=== PATIENT | male | born 1985 | race Caucasian/White ===

== ENCOUNTER 2019-12-21 15:31 | Observation (INO) | payer OTHER ==
[2019-12-21 16:11] LABS: Absolute Lymphocytes (CBC) 0.5 K/uL (0.7-4.9); Basophils % 0.2 % (0-1.3); Lymphocytes % 4.7 % (15.3-44.8); MPV 11.1 fL (7.6-11.3); RBC Red Blood Cell Count 4.59 M/uL (4.33-5.43)
[2019-12-21 16:19] LABS: Potassium 3.7 mmol/L (3.5-5.1)
--- NOTE | 2019-12-21 16:54 | ER ---
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 Coronavirus screen: Client denies travel out of the [place] in the last 14 days. Ebola Screen: No symptoms or risks identified at this time. Initial Sepsis Screen: Does the patient meet any 2 criteria? No. Patient's initial sepsis screen is negative. Does the patient have a suspected source of infection? No. Patient's initial sepsis screen is negative. Risk Assessment: Do you want to hurt yourself or someone else? Patient reports no desire to harm self or others. Onset of symptoms was December 21, 2019. 15:35 Method Of Arrival: EMS: [facility] ph 15:35 Acuity: SARIAH 3 ph Historical: - Allergies: 18:29 NKA; em - PMHx: 18:29 None; em - PSHx: 18:29 Tonsillectomy; right arm; cleft palate; em - Immunization history:: Adult Immunizations unknown. - Social history:: Smoking status: unknown. Screenin:36 Abuse screen: Denies threats or abuse. Nutritional screening: No deficits noted. em Tuberculosis screening: No symptoms or risk factors identified. Fall Risk None identified. Assessment: 15:35 General: Appears in no apparent distress. uncomfortable, Behavior is calm, quiet. Pain: em Denies pain. Neuro: Level of Consciousness is awake, alert, obeys commands, Oriented to person, place, time, situation, Appropriate for age. Cardiovascular: Capillary refill < 3 seconds Patient's skin is warm and dry. Rhythm is sinus tachycardia. Respiratory: Airway is patent Respiratory effort is even, unlabored, Respiratory pattern is regular, symmetrical. GI: Patient currently denies nausea, vomiting. Derm: Skin is intact, is healthy with good turgor, Skin is pink, warm \T\ dry. Musculoskeletal: Capillary refill < 3 seconds, Range of motion: intact in all extremities. 16:35 Reassessment: Patient appears in no apparent distress at this time. Patient and/or em family updated on plan of care and expected duration. Pain level reassessed. Patient is alert, oriented x 3, equal unlabored respirations, skin warm/dry/pink. 17:17 Reassessment: Dr. Deleon at bedside. em 18:25 Reassessment: PERLA Jackson at bedside. em 19:15 General: Appears comfortable, Behavior is calm, cooperative. Pain: Denies pain. Neuro: rv Level of Consciousness is awake, alert, obeys commands, Oriented to person, place, time, situation. Cardiovascular: Patient's skin is warm and dry. Rhythm is regular. Respiratory: Airway is patent Respiratory effort is even, unlabored, Respiratory pattern is regular, symmetrical. Vital Signs: 15:35 BP 99 / 65; Pulse 109; Resp 18; Temp 99.1(O); Pulse Ox 100% on R/A; Weight 106.59 kg; ph Height 6 ft. 1 in. (185.42 cm); 15:44 BP 110 / 61 LA Supine; Pulse 99; Resp 16; Pulse Ox 99% on R/A; dh3 15:46 BP 113 / 65 LA Sitting; Pulse 104; Resp 17; Pulse Ox 99% on R/A; dh3 15:48 BP 102 / 69 LA Standing; Pulse 107; Resp 19; Pulse Ox 100% on R/A; dh3 16:39 BP 101 / 59; Pulse 97; Resp 18; Pulse Ox 94% on R/A; em 17:30 BP 112 / 69; Pulse 80; Resp 16; Pulse Ox 100% on R/A; em 19:14 BP 111 / 75; Pulse 76; Resp 15; Pulse Ox 100% on R/A; rv 15:35 Body Mass Index 31.00 (106.59 kg, 185.42 cm) ph ED Course: 15:34 Patient arrived in ED. ph 15:35 Crystal Bailey [facility]C [facility]. kb 15:35 Mio Perez MD is Attending Physician. kb 15:36 Boni Byrd, TOSHIA is Primary Nurse. em 15:36 Patient has correct armband on for positive identification. Pulse ox on. NIBP on. em 15:36 Maintain EMS IV. Dressing intact. Good blood return noted. Site clean \T\ dry. Gauge \T\ em site: 18 G RAC. 15:39 Triage completed. ph 15:41 Arm band placed on Patient placed in an exam room, on a stretcher, on pulse oximetry. ph 15:50 Initial lab(s) drawn, by me, sent to lab. [facility] 16:54 Berto Deleon MD is Hospitalizing Provider. kb 18:08 CT Stone Protocol In Process Unspecified. EDMS 18:28 Urine collected: clean catch specimen, clear. em 20:20 No provider procedures requiring assistance completed. IV is patent, with fluids rv infusing freely, Patient admitted, IV remains in place. Administered Medications: 17:11 Drug: NS 0.9% 1000 ml Route: IV; Rate: 1000 ml; Site: right antecubital; em 18:05 Follow up: IV Status: Completed infusion; IV Intake: 1000ml em 18:25 Drug: NS 0.9% 1000 ml Route: IV; Rate: 125 ml/hr; Site: right antecubital; em 20:20 Follow up: IV Status: Infusion continued upon admission rv Intake: 18:05 IV: 1000ml; Total: 1000ml. em Outcome: 16:54 Decision to Hospitalize by Provider. kb 20:20 Admitted to Med/surg accompanied by tech, via wheelchair, room 213, Other SBAR EKG rv Report called to DENNIS POPE 20:20 Condition: good 20:20 Instructed on the need for admit. 20:33 Patient left the ED. rv Signatures: Dispatcher [employer] EDUT Crystal Bailey, REVIEW ANALYST-Brenda MELISSAP-Boni Dean, RN RN Nathaly Lane RN RN Yazmin Toro [facility] Guillermo Hill RN RN rv
--- NOTE | 2019-12-21 16:55 | EDPHYS ---
Physician Documentation [facility] Name: David Goldman Age: 34 yrs Sex: Male : 1985 Arrival Date: 12/21/2019 Time: 15:34 Bed 7 Private MD: ED Physician Mio Perez HPI: 12/20 15:41 This 34 yrs old Male presents to ER via EMS with complaints of Heat Exposure. kb 15:41 The patient presents with lightheadedness. Onset: The symptoms/episode began/occurred kb just prior to arrival. Context: occurred outdoors, at work, occurred while the patient was working. Modifying factors: The symptoms are alleviated by nothing, the symptoms are aggravated by nothing. Associated signs and symptoms: Pertinent positives: lightheaded, muscle cramps. Severity of symptoms: At their worst the symptoms were moderate in the emergency department the symptoms have improved. Patient's baseline: Neuro: alert and fully oriented, Motor: no deficits, Ambulation: walks without assistance, Speech: normal. The patient has not experienced similar symptoms in the past. The patient has not recently seen a physician. Pt reports he has been working outside all day without a break and got too hot. Reports lightheadedness and muscle cramps. . Historical: - Allergies: 18:29 NKA; em - PMHx: 18:29 None; em - PSHx: 18:29 Tonsillectomy; right arm; cleft palate; em - Immunization history:: Adult Immunizations unknown. - Social history:: Smoking status: unknown. ROS: 15:40 Constitutional: Negative for fever, chills, and weight loss, Cardiovascular: Negative kb for chest pain, palpitations, and edema, Respiratory: Negative for shortness of breath, cough, wheezing, and pleuritic chest pain, Abdomen/GI: Negative for abdominal pain, nausea, vomiting, diarrhea, and constipation, MS/Extremity: Negative for injury and deformity. + muscle cramps Skin: Negative for injury, rash, and discoloration. 15:40 Neuro: Positive for lightheaded. Exam: 15:41 Constitutional: This is a well developed, well nourished patient who is awake, alert, kb and in no acute distress. Head/Face: Normocephalic, atraumatic. Chest/axilla: Normal chest wall appearance and motion. Nontender with no deformity. No lesions are appreciated. Cardiovascular: Regular rate and rhythm with a normal S1 and S2. No gallops, murmurs, or rubs. Normal PMI, no JVD. No pulse deficits. Respiratory: Lungs have equal breath sounds bilaterally, clear to auscultation and percussion. No rales, rhonchi or wheezes noted. No increased work of breathing, no retractions or nasal flaring. Abdomen/GI: Soft, non-tender, with normal bowel sounds. No distension or tympany. No guarding or rebound. No evidence of tenderness throughout. Skin: Warm, dry with normal turgor. Normal color with no rashes, no lesions, and no evidence of cellulitis. MS/ Extremity: Pulses equal, no cyanosis. Neurovascular intact. Full, normal range of motion. Neuro: Awake and alert, GCS 15, oriented to person, place, time, and situation. Cranial nerves II-XII grossly intact. Motor strength 5/5 in all extremities. Sensory grossly intact. Cerebellar exam normal. Normal gait. 16:00 ECG was reviewed by the Attending Physician. kb Vital Signs: 15:35 BP 99 / 65; Pulse 109; Resp 18; Temp 99.1(O); Pulse Ox 100% on R/A; Weight 106.59 kg; ph Height 6 ft. 1 in. (185.42 cm); 15:44 BP 110 / 61 LA Supine; Pulse 99; Resp 16; Pulse Ox 99% on R/A; dh3 15:46 BP 113 / 65 LA Sitting; Pulse 104; Resp 17; Pulse Ox 99% on R/A; dh3 15:48 BP 102 / 69 LA Standing; Pulse 107; Resp 19; Pulse Ox 100% on R/A; dh3 16:39 BP 101 / 59; Pulse 97; Resp 18; Pulse Ox 94% on R/A; em 17:30 BP 112 / 69; Pulse 80; Resp 16; Pulse Ox 100% on R/A; em 19:14 BP 111 / 75; Pulse 76; Resp 15; Pulse Ox 100% on R/A; rv 15:35 Body Mass Index 31.00 (106.59 kg, 185.42 cm) ph MDM: 15:35 Patient medically screened. kb 15:40 Data reviewed: vital signs, nurses notes. Data interpreted: Pulse oximetry: on room air kb is 100 %. Interpretation: normal. 16:53 Counseling: I had a detailed discussion with the patient and/or guardian regarding: the kb historical points, exam findings, and any diagnostic results supporting the discharge/admit diagnosis, lab results, the need for further work-up and treatment in the hospital. Physician consultation: Berto Deleon MD was contacted at 16:53, regarding admission, to the telemetry unit. and will see patient in ED, shortly. 12/20 15:38 Order name: CBC with Diff; Complete Time: 19:46 kb 12/20 15:38 Order name: Basic Metabolic Panel; Complete Time: 16:20 kb 12/20 15:38 Order name: CPK; Complete Time: 16:20 kb 12/20 17:46 Order name: CT Stone Protocol; Complete Time: 18:25 mt 12/20 18:27 Order name: Urine Dipstick--Ancillary (enter results); Complete Time: 19:17 mt 12/20 19:43 Order name: CBC Smear Scan; Complete Time: 19:46 EDMS 12/20 15:38 Order name: IV Start; Complete Time: 15:47 kb 12/20 15:38 Order name: EKG; Complete Time: 15:39 kb 12/20 15:38 Order name: EKG - Nurse/Tech; Complete Time: 15:47 kb 12/20 15:38 Order name: Orthostatics; Complete Time: 15:47 kb 12/20 15:38 Order name: Urine Dipstick-Ancillary (obtain specimen); Complete Time: 18:28 kb EC:00 Rate is 98 beats/min. Rhythm is regular. QRS [place] is Normal. LA interval is normal at kb 162 msec. QRS interval is normal at 80 msec. QT interval is normal at 338 msec. Administered Medications: 17:11 Drug: NS 0.9% 1000 ml Route: IV; Rate: 1000 ml; Site: right antecubital; em 18:05 Follow up: IV Status: Completed infusion; IV Intake: 1000ml em 18:25 Drug: NS 0.9% 1000 ml Route: IV; Rate: 125 ml/hr; Site: right antecubital; em 20:20 Follow up: IV Status: Infusion continued upon admission rv Disposition: 12/21 07:27 Co-signature as Attending Physician, Mio Perez MD I agree with the assessment and kdr plan of care. Disposition: 12/21/19 16:54 Hospitalization ordered by Berto Deleon for Observation. Preliminary diagnosis are Dehydration, Exposure to excessive natural heat. - Bed requested for Telemetry/MedSurg (observation). - Status is Observation. rv - Condition is Stable. - Problem is new. - Symptoms are unchanged. Signatures: Dispatcher [employer] EDIN Crystal Bailey, BRAND PLANNER-C BRAND PLANNER-Ckb Mio Perez MD MD [facility] Boni Byrd, RN RN Thu Moore, RN RN tl1 Guillermo Hill, RN RN rv Corrections: (The following items were deleted from the chart) 12/20 19:14 16:54 Hospitalization Ordered by Berto Deleon MD for Observation. Preliminary tl1 diagnosis is Dehydration; Exposure to excessive natural heat. Bed requested for Telemetry/MedSurg (observation). Status is Observation. Condition is Stable. Problem is new. Symptoms are unchanged. kb 20:33 19:14 12/21/2019 16:54 Hospitalization Ordered by Berto Deleon MD for Observation. rv Preliminary diagnosis is Dehydration; Exposure to excessive natural heat. Bed requested for Telemetry/MedSurg (observation). Status is Observation. Condition is Stable. Problem is new. Symptoms are unchanged. tl1
[2019-12-21] MEDS ORDERED: NA CHLORIDE 0.9% 1,000 ML ONE ×2 (17:18→18:16)
--- NOTE | 2019-12-21 18:18 | RAD REPORT ---
EXAM DESCRIPTION: CT - Stone Protocol - 12/21/2019 6:08 pm CLINICAL HISTORY: ABD PAIN COMPARISON: Abdomen Pelvis W Contrast dated 04/13/2016 TECHNIQUE: Axial [address] imaging of the abdomen and pelvis was performed without IV contrast. No IV contrast was given because of allergy, abnormal renal function, patient refusal or physician re quest. No oral contrast. All CT scans are performed using dose optimization technique as appropriate and may include automated exposure control or mA/KV adjustment according to patient size. FINDINGS: No suspicious findings in the lung bases. The liver, spleen and pancreas show no suspicious findings on non-contrast imaging. Gallbladder and b iliary tree are also without suspicious finding. No hydronephrosis or suspicious renal mass. No significant adrenal finding. Isodense renal masses an d pyelonephritis cannot be excluded in the absence of IV contrast. The urinary bladder is without sig nificant finding. No dilated bowel loops or bowel wall thickening. Appendix is normal. No free air, free fluid or infla mmatory stranding. No hernia, mass or bulky lymphadenopathy. No suspicious bony findings. No significant change from comparison. IMPRESSION: Non-contrast enhanced CT abdomen and pelvis imaging show no significant or suspicious fi nding. Full assessment is limited is the absence of IV contrast.
--- NOTE | 2019-12-21 18:48 | P.HP ---
Certification for Inpatient Patient admitted to: Observation With expected LOS: <2 Midnights Patient will require the following post-hospital care: None Practitioner: I am a practitioner with admitting privileges, knowledge of patient current condition, hospital course, and medical plan of care. Services: Services provided to patient in accordance with Admission requirements found in Title 42 Section 412.3 of the Code of Federal Regulations <JordynManuel - Last Filed: 12/21/19 18:43> Patient History Date of Service: 12/21/19 Primary Care Provider: Dr. Bangura Reason for admission: FARRUKH History of Present Illness: 34 year old male with no significant medical history presents emergency department for muscle cramps and malaise. 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 Patient reports that he is attempting to stay well-hydrated drinking multiple bottles of water in the morning and some sports drinks out the day but by the end of the day he was having muscle cramps and feeling ill. Patient was worked up in the emergency room and found to have elevated creatinine at 2.47, BUN 27, GFR 30, CPK 392. After hospitalist attending interview patient he revealed that he had been having trouble initiating urinary stream and sometimes problems with continuation for the past few months but especially over the course of the last 3 weeks. ED provider obtained CT stone protocol which did not show any acute findings or obstructive uropathy. Patient be admitted for further evaluation and management. When I saw the patient in the emergency department is awake, alert, oriented x3. Patient in no distress, denies any pain at this time. Patient able to urinate and provide specimen. - Past Medical/Surgical History Diabetic: No -: none -: Cleft palate -: Extra toe amputation -: Forearm surgery -: Tonsillectomy Psychosocial/ Personal History: 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 - Family History Mother Notes: IBD, hypertension - Social History Alcohol use: No CD- Drugs: No Caffeine use: Yes Place of Residence: Home <Manuel Cobb - Last Filed: 12/21/19 18:43> Date of Service: 12/24/19 <Berto Deleon - Last Filed: 12/24/19 15:33> Allergies No Known Drug Allergies Allergy (Verified 12/21/19 20:33) Unknown No Known Allergies Allergy (Uncoded 04/13/16 16:21) Unknown Review of Systems 10-point ROS is otherwise unremarkable Musculoskeletal: Other (Muscle cramps) <Manuel Cobb - Last Filed: 12/21/19 18:43> Physical Examination - Physical Exam General: Alert, In no apparent distress HEENT: Atraumatic, PERRLA, Mucous membr. moist/pink Neck: Supple, 2+ carotid pulse no bruit, No LAD Respiratory: Clear to auscultation bilaterally, Normal air movement Cardiovascular: Regular rate/rhythm, Normal S1 S2 Gastrointestinal: Normal bowel sounds, No tenderness Musculoskeletal: No tenderness Integumentary: No rashes Neurological: Normal gait, Normal speech, Normal strength at 5/5 x4 extr, Normal tone, Normal affect - Studies Laboratory Data (last 24 hrs) 12/21/19 15:50: Sodium 141, Potassium 3.7, BUN 27 H, Creatinine 2.47 H, Glucose 100 12/21/19 15:50: WBC 11.0 H, Hgb 13.6, Hct 40.0, Plt Count 186 <Manuel Cobb - Last Filed: 12/21/19 18:43> Assessment and Plan - Plan Assessment Acute kidney injury Plan Acute kidney injury: Continue with IV hydration, nephrology consult in place. Renal ultrasound and uric acid levels ordered. Likely prerenal. DVT prophylaxis heparin 5000 units subcutaneous twice daily. Appreciate further input from nephrology. Discharge Plan: Home Plan to discharge in: 24 Hours - Advance Directives Does patient have a Living Will: No Does patient have a Durable POA for Healthcare: No - Code Status/Comfort Care Code Status Assessed: Yes (Patient is full code) Critical Care: No Time Spent Managing Pts Care (In Minutes): 55 <Manuel Cobb - Last Filed: 12/21/19 18:43> Physician Review Additional Text: Plan of care discussed with Manuel Cobb, and I agree with the management plan as noted above. FARRUKH and likely secondary to heat exhaustion <Berto Deleon - Last Filed: 12/24/19 15:33>
[2019-12-21 19:09] LABS: Urine Blood TRACE (NEG); Urine Glucose NEGATIVE (NEG); Urine Protein 2+ (NEG); Urine pH 5.5 (5.0-7.0)
[2019-12-21 19:43] LABS: Blood Morphology Comment NOT SEEN (NOT SEEN); Platelet Estimate ADEQ; White Blood Cell Scan OK (OK)
[2019-12-21 20:35] VITALS: BMI 29.3
[2019-12-21] MEDS ORDERED: ONDANSETRON 4 MG/2 ML VIAL IV PRN (20:39)
[2019-12-21] MEDS ORDERED: ACETAMINOPHEN 500 MG TAB PO PRN (20:39)
[2019-12-21] MEDS: NA CHLORIDE 0.9% 1,000 ML IV SCH (20:59)
[2019-12-21] MEDS: HEPARIN 5000 UNIT/ML 1 ML VIAL SQ SCH (21:00)
[2019-12-21 23:01] LABS: Urine Protein/Creatinine Ratio 0.09 ratio (<0.15)
[2019-12-21 23:29] LABS: Urine Appearance CLEAR; Urine Bilirubin NEGATIVE (NEG); Urine Blood NEGATIVE (NEG); Urine Color YELLOW; Urine Glucose NEGATIVE (NEG); Urine Protein NEGATIVE (NEG); Urine Urobilinogen 0.2 mg/dL (0.2-1.0); Urine pH 5.5 (5.0-7.0)
[2019-12-21 23:30] LABS: Urine Microscopic Reflex NO UMIC
[2019-12-22] MEDS: NA CHLORIDE 0.9% 1,000 ML IV SCH ×2 (03:45→11:51)
[2019-12-22 05:46] LABS: Absolute Lymphocytes (CBC) 1.7 K/uL (0.7-4.9); Basophils % 0.7 % (0-1.3); Hematocrit 37.7 % (39.6-49.0); Lymphocytes % 23.2 % (15.3-44.8); MPV 10.6 fL (7.6-11.3)
[2019-12-22 06:09] LABS: Magnesium 2.5 mg/dL (1.8-2.4); Potassium 3.7 mmol/L (3.5-5.1); Uric Acid 6.5 mg/dL (3.5-7.2)
[2019-12-22] MEDS: HEPARIN 5000 UNIT/ML 1 ML VIAL SQ SCH (08:01)
[2019-12-22] MEDS ORDERED: POTASSIUM CL SA 10 MEQ TAB PO ONE (09:00)
--- NOTE | 2019-12-22 09:23 | RAD REPORT ---
EXAM DESCRIPTION: US - Renal Ultrasound-Complete - 12/22/2019 8:46 am CLINICAL HISTORY: Acute renal insufficiency COMPARISON: None. FINDINGS: The right kidney measures 11 cm with an increased echotexture. The left kidney measures 11 cm with an increased echotexture. Hydronephrosis is not seen. No gross abnormality of bladder is seen IMPRESSION: Mildly increased renal echotexture consistent with parenchymal disease
[2019-12-22 10:23] VITALS: O2SAT 96
--- NOTE | 2019-12-22 12:35 | P.CNS ---
Date of Consult: 12/22/19 Primary Care Provider: Dr. 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, have diffculty in urination, no dysuria or hematuria in RE Cr 2.4, no significant finding on US Physical exam general: AAOX3, NAD Neck; Supple, No elevated JVD hear: RRR, normal S1,2 no murmur or rub Chest: CTAB, no rlaes or wheezes Abdomen: Soft , Nt Extremities No edema or ulcer A/P FARRUKH due to dehydration from heat exhaust improved on IVF US no hydro Avoid NSAID mild Rhabdomyolysis fom heat exhause improved encourage to increase fluid intake Pt can be discharged from nephrology point of view , follow up in 2-3 wks , repeat labs with PCP in 1wk Allergies No Known Drug Allergies Allergy (Verified 12/21/19 20:33) Unknown No Known Allergies Allergy (Uncoded 04/13/16 16:21) Unknown Home Medications: NK [No Home Meds] 12/21/19 - Past Medical/Surgical History Diabetic: No -: none -: Cleft palate -: Extra toe amputation -: Forearm surgery -: Tonsillectomy Psychosocial/ Personal History: 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 - Family History Mother Notes: IBD, hypertension - Social History Smoking Status: Unknown if ever smoked Alcohol use: No CD- Drugs: No Caffeine use: Yes Place of Residence: Home Physical Examination Temp Pulse Resp BP Pulse Ox 98.6 F 69 18 116/61 96 12/22/19 08:00 12/22/19 08:00 12/22/19 08:00 12/22/19 08:00 12/22/19 08:00 Laboratory Data (last 24 hrs) 12/21/19 15:50: Sodium 141, Potassium 3.7, BUN 27 H, Creatinine 2.47 H, Glucose 100 12/21/19 15:50: WBC 11.0 H, Hgb 13.6, Hct 40.0, Plt Count 186
[2019-12-22 14:19] VITALS: BP 110/62; TEMP 98
--- NOTE | 2019-12-22 21:27 | P.DS ---
Admission Date: 12/21/19 Discharge Date: 12/22/19 Primary Care Provider: Dr. Bangura Disposition: ROUTINE DISCHARGE Discharge Condition: GOOD Reason for Admission: FARRUKH Consultations: Nephrology -Dr. Reid Procedures: CT Abd/Pelvis (12/20): Non-contrast enhanced CT abdomen and pelvis imaging show no significant or suspicious finding. Renal U/S (12/20): Mildly increased renal echotexture consistent with parenchymal disease Problem List FARRUKH secondary to acute rhabdomyolysis in setting of heat exhaustion Urinary hesitation Brief History of Present Illness: 34 year old male with no significant medical history presents emergency department for muscle cramps and malaise. 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 Patient reports that he is attempting to stay well-hydrated drinking multiple bottles of water in the morning and some sports drinks out the day but by the end of the day he was having muscle cramps and feeling ill. Patient was worked up in the emergency room and found to have elevated creatinine at 2.47, BUN 27, GFR 30, CPK 392. After hospitalist attending interview patient he revealed that he had been having trouble initiating urinary stream (taking several minutes to initiate stream) and sometimes problems with continuation for the past few months but especially over the course of the last 3 weeks. ED provider obtained CT stone protocol which did not show any acute findings or obstructive uropathy. Hospital Course: Patient was admitted, treated with IVF hydration. Nephrology was consulted. Patient's renal function improved the following day. He was feeling much better and was discharged home. He is to f/u with PCP for repeat BMP in ~1 week. He will f/u with nephrology in 2-3 weeks. He was advised to increase hydration and can return to work next week. He is to f/u with PCP regarding urinary hesitation. Vital Signs/Physical Exam: Temp Pulse Resp BP Pulse Ox 98 F 60 18 110/62 98 12/22/19 12:00 12/22/19 12:00 12/22/19 12:00 12/22/19 12:00 12/22/19 12:00 General: Alert, In no apparent distress HEENT: Mucous membr. moist/pink, Sclerae nonicteric Neck: Supple Respiratory: Clear to auscultation bilaterally, Normal air movement Cardiovascular: No edema, Regular rate/rhythm, Normal S1 S2 Gastrointestinal: Soft and benign, Non-distended, No tenderness Integumentary: No erythema Neurological: Normal speech, Normal affect Laboratory Data at Discharge: WBC 7.4 K/uL (4.3-10.9) D 12/22/19 05:21 Hgb 12.9 g/dL (13.6-17.9) L 12/22/19 05:21 Hct 37.7 % (39.6-49.0) L 12/22/19 05:21 Plt Count 167 K/uL (152-406) 12/22/19 05:21 Sodium 143 mmol/L (136-145) 12/22/19 05:21 Potassium 3.7 mmol/L (3.5-5.1) 12/22/19 05:21 BUN 26 mg/dL (7-18) H 12/22/19 05:21 Creatinine 1.31 mg/dL (0.55-1.3) H D 12/22/19 05:21 Glucose 95 mg/dL (74-106) 12/22/19 05:21 Uric Acid 6.5 mg/dL (3.5-7.2) 12/22/19 05:21 Magnesium 2.5 mg/dL (1.8-2.4) H 12/22/19 05:21 Home Medications: NK [No Home Meds] 12/21/19 Patient Discharge Instructions: follow up with PCP in 3-5 days, repeat bloodwork to check kidney function. Followup with nephrology in 3 weeks. Avoid ibuprofen/advil/aleve/naproxen. Stay well-hydrated. Ok to return to work 12/25/19 Diet: Regular Activity: Ad katelin Followup: Sae Mcdonald MD [ACTIVE - CAN ADMIT] - Time spent managing pt's care (in minutes): 35
== END 2019-12-22 14:54 | disposition home or self-care (01) ==
LOC: ER 15:31 → ERHOLD 18:48 → 2ND 20:12
PROVIDERS: ADMIT Hospitalist; ATTEND Hospitalist
DX: N17.9 Acute kidney failure, unspecified (principal); M62.82 Rhabdomyolysis; E86.0 Dehydration; R39.11 Hesitancy of micturition; X30.XXXA Exposure to excessive natural heat, initial encounter; Z20.828 Contact with and (suspected) exposure to other viral communicable diseases
CPT/HCPCS: 96361; 93005; 85025 ×2; 80048 ×2; 36415; 83735; 82550 ×2; 84300; 84550; 81003 ×2; 82570; 84156; 76377; 74176; 76770; 96360; 99285; U0002; J1644 ×2; J7030 ×5; G0378 ×3

== ENCOUNTER 2019-12-24 00:27 | Emergency (ER) | payer OTHER ==
[2019-12-24] MEDS ORDERED: NA CHLORIDE 0.9% 1,000 ML ONE ×2 (01:07)
[2019-12-24 01:20] LABS: Absolute Lymphocytes (CBC) 1.7 K/uL (0.7-4.9); Basophils % 0.6 % (0-1.3); Hematocrit 38.8 % (39.6-49.0); Lymphocytes % 33.5 % (15.3-44.8); RBC Red Blood Cell Count 4.42 M/uL (4.33-5.43)
[2019-12-24 01:41] LABS: ALT/SGPT 32 U/L (12-78); AST/SGOT 20 U/L (15-37); Albumin 3.8 g/dL (3.4-5.0); Alkaline Phosphatase 50 U/L (45-117); BUN Blood Urea Nitrogen 12 mg/dL (7-18); Bicarbonate 29 mmol/L (21-32); Bilirubin Total 0.4 mg/dL (0.2-1.0); Glucose Level 92 mg/dL (74-106); Lipase 91 U/L (73-393); Potassium 3.6 mmol/L (3.5-5.1); Protein, Total 6.9 g/dL (6.4-8.2); Sodium Level 141 mmol/L (136-145)
--- NOTE | 2019-12-24 02:56 | EDPHYS ---
Physician Documentation [facility] Name: David Goldman Age: 34 yrs Sex: Male : 1985 Arrival Date: 12/24/2019 Time: 00:30 Bed 15 Private MD: ED Physician Yusuf Lovett HPI: 12/23 00:51 This 34 yrs old Male presents to ER via Ambulatory with complaints of aniket Abdominal Pain, Flank Pain. 00:51 The patient complains of pain in the right mid back and right low back. The pain does aniket not radiate. Onset: The symptoms/episode began/occurred 1 day(s) ago. Modifying factors: The symptoms are alleviated by nothing. the symptoms are aggravated by nothing. Associated signs and symptoms: The patient has no apparent associated signs or symptoms. Severity of pain: At its worst the pain was mild in the emergency department the pain is unchanged. The patient has experienced a previous episode, last week. Historical: - Allergies: 00:36 NKA; sg - PMHx: 00:36 None; sg - PSHx: 00:36 Tonsillectomy; right arm; cleft palate; sg - Immunization history:: Adult Immunizations. - Social history:: Smoking status: Patient denies any tobacco usage or history of. ROS: 00:52 Constitutional: Negative for fever, chills, and weight loss, Eyes: Negative for injury, aniket pain, redness, and discharge, ENT: Negative for injury, pain, and discharge, Neck: Negative for injury, pain, and swelling, Cardiovascular: Negative for chest pain, palpitations, and edema, Respiratory: Negative for shortness of breath, cough, wheezing, and pleuritic chest pain, Back: Negative for injury and pain, : Negative for injury, bleeding, discharge, and swelling, MS/Extremity: Negative for injury and deformity, Skin: Negative for injury, rash, and discoloration, Neuro: Negative for headache, weakness, numbness, tingling, and seizure, Psych: Negative for depression, anxiety, suicide ideation, homicidal ideation, and hallucinations, Allergy/Immunology: Negative for hives, rash, and allergies, Endocrine: Negative for neck swelling, polydipsia, polyuria, polyphagia, and marked weight changes, Hematologic/Lymphatic: Negative for swollen nodes, abnormal bleeding, and unusual bruising. 00:52 Abdomen/GI: Positive for abdominal pain, abdominal cramps, of the right upper quadrant and right lower quadrant. Exam: 00:52 Constitutional: This is a well developed, well nourished patient who is awake, alert, aniket and in no acute distress. Head/Face: Normocephalic, atraumatic. Eyes: Pupils equal round and reactive to light, extra-ocular motions intact. Lids and lashes normal. Conjunctiva and sclera are non-icteric and not injected. Cornea within normal limits. Periorbital areas with no swelling, redness, or edema. ENT: Nares patent. No nasal discharge, no septal abnormalities noted. Tympanic membranes are normal and external auditory canals are clear. Oropharynx with no redness, swelling, or masses, exudates, or evidence of obstruction, uvula midline. Mucous membranes moist. Neck: Trachea midline, no thyromegaly or masses palpated, and no cervical lymphadenopathy. Supple, full range of motion without nuchal rigidity, or vertebral point tenderness. No Meningismus. Chest/axilla: Normal chest wall appearance and motion. Nontender with no deformity. No lesions are appreciated. Cardiovascular: Regular rate and rhythm with a normal S1 and S2. No gallops, murmurs, or rubs. Normal PMI, no JVD. No pulse deficits. Respiratory: Lungs have equal breath sounds bilaterally, clear to auscultation and percussion. No rales, rhonchi or wheezes noted. No increased work of breathing, no retractions or nasal flaring. Back: No spinal tenderness. No costovertebral tenderness. Full range of motion. Male : Normal genitalia with no discharge or lesions. Skin: Warm, dry with normal turgor. Normal color with no rashes, no lesions, and no evidence of cellulitis. MS/ Extremity: Pulses equal, no cyanosis. Neurovascular intact. Full, normal range of motion. Neuro: Awake and alert, GCS 15, oriented to person, place, time, and situation. Cranial nerves II-XII grossly intact. Motor strength 5/5 in all extremities. Sensory grossly intact. Cerebellar exam normal. Normal gait. Psych: Awake, alert, with orientation to person, place and time. Behavior, mood, and affect are within normal limits. 00:52 Abdomen/GI: Inspection: distension, Bowel sounds: normal, Palpation: nontender, Liver: no appreciated palpable abnormalities, Hernia: not appreciated. Vital Signs: 00:40 BP 120 / 82; Pulse 52; Resp 17; Temp 98.5; Pulse Ox 96% on R/A; Pain 8/10; ll2 01:43 BP 116 / 85; Pulse 50; Resp 16; Pulse Ox 98% on R/A; ll2 02:42 BP 116 / 80; Pulse 50; Resp 17; Pulse Ox 97% on R/A; ll2 MDM: 00:42 Patient medically screened. aniket 00:53 Differential diagnosis: nephrolithiasis, pyelonephritis, UTI, pancreatitis. Data [facility] reviewed: vital signs, nurses notes, lab test result(s), radiologic studies, CT scan. Data interpreted: monitor car operator: rate is 52 beats/min, Pulse oximetry: on room air is 96 %. Counseling: I had a detailed discussion with the patient and/or guardian regarding: the historical points, exam findings, and any diagnostic results supporting the discharge/admit diagnosis, lab results, radiology results, the need for outpatient follow up, for definitive care, an lead ios developer. 12/23 00:51 Order name: CBC with Diff; Complete Time: 01:46 [facility] 12/23 00:51 Order name: Comprehensive Metabolic Panel; Complete Time: 01:46 [facility] 12/23 00:51 Order name: Lipase; Complete Time: 01:46 [facility] 12/23 02:49 Order name: CT Stone Protocol [facility] 12/23 00:51 Order name: Urine Dipstick-Ancillary (obtain specimen); Complete Time: 02:16 aniket Administered Medications: 01:24 Drug: NS 0.9% 1000 ml Route: IV; Rate: 1 bolus; Site: right antecubital; mg2 03:08 Follow up: Response: No adverse reaction; IV Status: Completed infusion ll2 Disposition: 12/24/19 02:56 Discharged to Home. Impression: Abdominal tenderness. - Condition is Stable. - Discharge Instructions: Abdominal Pain, Adult, Abdominal Pain, Adult, [id number]. - Medication Reconciliation Form, Thank You Letter, Antibiotic Education, Prescription Opioid Use form. - Follow up: Private Physician; When: 2 - 3 days; Reason: Recheck today's complaints, Continuance of care, Re-evaluation by your physician. Follow up: Sae Mcdonald; When: 2 - 3 days; Reason: Recheck today's complaints, Re-evaluation by your physician. - Problem is new. - Symptoms have improved. Signatures: Dispatcher [employer] EDRiki Benoit, RN RN Yusuf Crews MD MD cha Gardose, Michele, RN RN [facility] Alisha Betancourt RN RN ll2 Corrections: (The following items were deleted from the chart) 03:07 02:56 12/24/2019 02:56 Discharged to Home. Impression: Abdominal tenderness. Condition ll2 is Stable. Discharge Instructions: Abdominal Pain, Adult, Abdominal Pain, Adult, [id number]. Forms are Medication Reconciliation Form, Thank You Letter, Antibiotic Education, Prescription Opioid Use. Follow up: Private Physician; When: 2 - 3 days; Reason: Recheck today's complaints, Continuance of care, Re-evaluation by your physician. Follow up: Sae Mcdonald; When: 2 - 3 days; Reason: Recheck today's complaints, Re-evaluation by your physician. Problem is new. Symptoms have improved. aniket
--- NOTE | 2019-12-24 02:56 | ER ---
Nurse's Notes [facility] Name: David Goldman Age: 34 yrs Sex: Male : 1985 Arrival Date: 12/24/2019 Time: 00:30 Bed 15 Private MD: Diagnosis: Abdominal tenderness Presentation: 12/23 00:36 Chief complaint: Patient states: My discharge instructions that I got from upstairs sg said that if I felt worse then I should come back to the hospital to get seen again, Im feeling worse. Reports abdominal pain and flank pain at this time, denies fever/chills, reports nausea that is intermittent. Coronavirus screen: Client denies travel out of the [place] in the last 14 days. At this time, the client does not indicate any symptoms associated with coronavirus-19. Ebola Screen: Patient negative for fever greater than or equal to 101.5 degrees Fahrenheit, and additional compatible Ebola Virus Disease symptoms Patient denies exposure to infectious person. Patient denies travel to an Ebola-affected area in the 21 days before illness onset. No symptoms or risks identified at this time. Initial Sepsis Screen: Does the patient meet any 2 criteria? No. Patient's initial sepsis screen is negative. Does the patient have a suspected source of infection? No. Patient's initial sepsis screen is negative. Risk Assessment: Do you want to hurt yourself or someone else? Patient reports no desire to harm self or others. Onset of symptoms was December 24, 2019. Care prior to arrival: None. Transition of care: patient was not received from another setting of care. 00:36 Acuity: SARIAH 3 sg 00:36 Method Of Arrival: Ambulatory sg Historical: - Allergies: 00:36 NKA; sg - PMHx: 00:36 None; sg - PSHx: 00:36 Tonsillectomy; right arm; cleft palate; sg - Immunization history:: Adult Immunizations. - Social history:: Smoking status: Patient denies any tobacco usage or history of. Screenin:39 Abuse screen: Denies threats or abuse. Nutritional screening: No deficits noted. ll2 Tuberculosis screening: No symptoms or risk factors identified. Fall Risk None identified. Assessment: 00:38 Reassessment: see triage assessment. General: Appears in no apparent distress. Behavior ll2 is calm, cooperative, appropriate for age. Pain: Complains of pain in left upper quadrant Pain currently is 8 out of 10 on a pain scale. Neuro: Level of Consciousness is awake, alert, obeys commands, Oriented to person, place, time, situation. Cardiovascular: Capillary refill < 3 seconds Patient's skin is warm and dry. Respiratory: Airway is patent Respiratory effort is even, unlabored, Respiratory pattern is regular, symmetrical. GI:. : Denies burning with urination, inability to void, urinary frequency. EENT: No signs and/or symptoms were reported regarding the EENT system. Derm: Skin is intact, is healthy with good turgor, Skin is dry, Skin is pink, warm \T\ dry. Skin temperature is warm. Musculoskeletal: Circulation, motion, and sensation intact. Range of motion: intact in all extremities. 01:15 Reassessment: Patient and/or family updated on plan of care and expected duration. Pain ll2 level reassessed. Patient is alert, oriented x 3, equal unlabored respirations, skin warm/dry/pink. 03:07 GI: Bowel sounds present X 4 quads. Abd is soft and non tender. ll2 Vital Signs: 00:40 BP 120 / 82; Pulse 52; Resp 17; Temp 98.5; Pulse Ox 96% on R/A; Pain 8/10; ll2 01:43 BP 116 / 85; Pulse 50; Resp 16; Pulse Ox 98% on R/A; ll2 02:42 BP 116 / 80; Pulse 50; Resp 17; Pulse Ox 97% on R/A; ll2 ED Course: 00:30 Patient arrived in ED. bg2 00:36 Arm band placed on. sg 00:38 Triage completed. sg 00:38 Alisha Betancourt, RN is Primary Nurse. ll2 00:40 Patient has correct armband on for positive identification. Bed in low position. Call ll2 light in reach. Side rails up X 1. Pulse ox on. NIBP on. 00:42 Yusuf Lovett MD is Attending Physician. aniket 01:03 Initial lab(s) drawn, by mn, sent to lab. Inserted saline lock: 20 gauge in right ll2 forearm, using aseptic technique. Blood collected. 01:17 CT Stone Protocol In Process Unspecified. EDMS 02:56 Sae Mcdonald MD is Referral Physician. aniket 03:00 CT Stone Protocol In Process Unspecified. EDMS 03:07 No provider procedures requiring assistance completed. IV discontinued, intact, ll2 bleeding controlled, No redness/swelling at site. Pressure dressing applied. Administered Medications: 01:24 Drug: NS 0.9% 1000 ml Route: IV; Rate: 1 bolus; Site: right antecubital; mg2 03:08 Follow up: Response: No adverse reaction; IV Status: Completed infusion ll2 Outcome: 02:56 Discharge ordered by . aniket 03:07 Discharged to home ambulatory. ll2 03:07 Condition: stable 03:07 Discharge instructions given to patient, Instructed on discharge instructions, follow up and referral plans. Demonstrated understanding of instructions, follow-up care. 03:07 Patient left the ED. ll2 Addendum: 12/25/2019 17:36 Addendum: COVID-19 Result: Negative result given to RN to notify pt. Contacted by: paige Franklin V RN. Left voice mail. 17:41 Addendum: COVID-19 Result: Negative result given to RN to notify pt. Notified pt of s v negative COVID 19 swab results. Pt advised that even with a negative test result they should remain in isolation until symptom free for 3 days without medication. Pt also advised to return to the ED for worsening symptoms. Signatures: Dispatcher [employer] Noemi Blackwell, RN Riki Sahu RN RN sg Anderson, Corey, MD MD cha Glass, Brittany 2 Willy Ledezma RN RN mg2 Linscombe, Lacie, RN RN ll2 Corrections: (The following items were deleted from the chart) 12/23 00:40 00:36 Chief complaint: Patient states: My discharge instructions that I got from sg upstairs said that if I felt worse then I should come back to the hospital to get seen again, Im feeling worse. sg
[2019-12-24 03:16] VITALS: TEMP 98.5
[2019-12-24 03:19] VITALS: BP 116/80; O2SAT 97
[2019-12-24 03:22] LABS: Urine Blood NEGATIVE (NEG); Urine Glucose NEGATIVE (NEG); Urine Protein NEGATIVE (NEG); Urine Specific Gravity 1.015 (1.005-1.030)
--- NOTE | 2019-12-24 15:34 | RAD REPORT ---
EXAM DESCRIPTION: Stone Protocol ADDENDUM #1 Addendum begins: The complete set of images is now available. Upon review of additional imaging there are no new findi ngs. Impression remains unchanged. Electronically signed by: Sarabjit Small 12/24/2019 3:22 AM CDT End of Addendum EXAM DESCRIPTION: CT ABDOMEN AND PELVIS WITHOUT CONTRAST CLINICAL HISTORY: ABD PAIN COMPARISON: 12/21/2019 TECHNIQUE: CT of the abdomen and pelvis without IV contrast. Evaluation of the solid organs and vasc ulature is suboptimal due to lack of IV contrast. FINDINGS: Lung Bases: The visualized lung bases are clear. Bones: No destructive bone lesions identified. Abdomen: Liver: The liver has normal size and density. Gallbladder: No calcified gallstones. Spleen, Pancreas, and Adrenal Glands: Lipid rich 2.1 cm right adrenal adenoma is stable. Left adren al gland, spleen, and pancreas are unremarkable. Kidneys: The kidneys have normal size without evidence of hydronephrosis. No obstructing ureteral harpal culi. Vasculature: The aorta and IVC have normal caliber and position. Stomach: The stomach and duodenum have normal course. Other: No free intraperitoneal air. Small amount of free fluid. Pelvis: Bladder: Urinary bladder is unremarkable. Bowel: No dilated loops of large or small bowel. Appendix: Normal appendix. Pelvis: Prostate is not enlarged. IMPRESSION: 1. Interval development of trace free fluid in the pelvis. This is nonspecific. No etiol ogy to explain free fluid is identified on this study. No other acute abnormalities identified. 2. This dictation will be approved with visualization of the majority of the axial imaging. The techn ologist is having technical issues resending the most inferior slices of the axial images as well as reformatted images. When these images are available they will be reviewed and an addendum will be pedrito shlomo. This exam was performed according to our departmental dose-optimization program, which includes autom ated exposure control, adjustment of the mA and/or kV according to patient size and/or use of iterati ve reconstruction technique. Electronically signed by: Sarabjit Small 12/24/2019 3:01 AM CDT Due to temporary technical issues with the PACS/Fluency reporting system, reports are being signed by the in house radiologist without review as a courtesy to ensure prompt reporting. The interpreting r adiologist is fully responsible for the content of the report.
== END 2019-12-24 03:07 | disposition home or self-care (01) ==
LOC: ER 00:27
DX: R10.819 Abdominal tenderness, unspecified site (principal)
CPT/HCPCS: 96361; 85025; 36415; 81003; 83690; 80053; 76377; 74176; 96360; 99284; J7030 ×2

== ENCOUNTER 2020-08-25 19:40 | Emergency (ER) | payer OTHER ==
--- NOTE | 2020-08-25 20:46 | ER ---
Nurse's Notes [facility] Name: David Goldman Age: 34 yrs Sex: Male : 1985 Arrival Date: 08/25/2020 Time: 19:42 Bed 15 Private MD: Diagnosis: Foreign Body Sensation, Throat Presentation: 08/25 19:42 Chief complaint: EMS states: Approximately 30 minutes ago patient was choking on a vg1 piece of chicken. Pt was able to get it down with some water but patient is c/o tasting blood and wants to make sure nothing is still stuck. Coronavirus screen: Client denies travel out of the [place] in the last 14 days. Ebola Screen: Patient negative for fever greater than or equal to 101.5 degrees Fahrenheit, and additional compatible Ebola Virus Disease symptoms. Initial Sepsis Screen: Does the patient meet any 2 criteria? No. Patient's initial sepsis screen is negative. Does the patient have a suspected source of infection? No. Patient's initial sepsis screen is negative. Risk Assessment: Do you want to hurt yourself or someone else? Patient reports no desire to harm self or others. Onset of symptoms was August 25, 2020. 19:42 Method Of Arrival: EMS: [facility] vg1 19:42 Acuity: SARIAH 4 vg1 Triage Assessment: 19:44 General: Appears in no apparent distress. comfortable, Behavior is calm, cooperative. vg1 Pain: Complains of pain in chest and throat Pain currently is 4 out of 10 on a pain scale. Pain began 30 min ago. EENT: Throat is reddened. Neuro: Level of Consciousness is awake, alert, obeys commands, Oriented to person, place, time, situation. Cardiovascular: Patient's skin is warm and dry. Respiratory: Airway is patent Respiratory effort is even, unlabored. GI: No signs and/or symptoms were reported involving the gastrointestinal system. : No signs and/or symptoms were reported regarding the genitourinary system. Derm: Skin is intact, is healthy with good turgor. Musculoskeletal: Circulation, motion, and sensation intact. Historical: - Allergies: 19:44 NKA; vg1 - Home Meds: 19:44 None [Active]; vg1 - PMHx: 19:44 None; vg1 - Immunization history:: Adult Immunizations up to date. - Social history:: Smoking status: Patient denies any tobacco usage or history of. Screenin:45 Abuse screen: Denies threats or abuse. Nutritional screening: No deficits noted. vg1 Tuberculosis screening: No symptoms or risk factors identified. Fall Risk No fall in past 12 months (0 pts). No secondary diagnosis (0 pts). No IV (0 pts). Ambulatory Aid- None/Bed Rest/Nurse Assist (0 pts). Gait- Normal/Bed Rest/Wheelchair (0 pts) Mental Status- Oriented to own ability (0 pts). Total Pickens Fall Scale indicates No Risk (0-24 pts). Primary Survey: 19:46 NO uncontrolled hemorrhage observed. Breathing/Chest: Respiratory pattern: regular. vg1 Circulation: Skin color: pink, Skin temperature: warm. Disability Alert. Assessment: 19:45 Reassessment: see triage. vg1 21:06 Reassessment: Patient and/or family updated on plan of care and expected duration. Pain ea level reassessed. Patient is alert, oriented x 3, equal unlabored respirations, skin warm/dry/pink. Discharge instruction given to patient verbalized the understanding of instruction. Pt left ED ambulatory tolerating well. Vital Signs: 19:42 BP 133 / 66; Pulse 70; Resp 16; Temp 98.2; Pulse Ox 99% ; Weight 106.59 kg; Height 6 vg1 ft. 3 in. (190.50 cm); Pain 4/10; 21:00 BP 130 / 60; Pulse 68; Resp 18; Temp 98; Pulse Ox 99% ; ea 19:42 Body Mass Index 29.37 (106.59 kg, 190.50 cm) vg1 Thalia Coma Score: 19:46 Eye Response: spontaneous(4). Verbal Response: oriented(5). Motor Response: obeys vg1 commands(6). Total: 15. Trauma Score (Adult): 19:46 Eye Response: spontaneous(1); Verbal Response: oriented(1); Motor Response: obeys vg1 commands(2); Systolic BP: > 89 mm Hg(4); Respiratory Rate: 10 to 29 per min(4); Thalia Score: 15; Trauma Score: 12 ED Course: 19:42 Patient arrived in ED. vg1 19:44 Triage completed. vg1 19:44 Arm band placed on. vg1 19:46 Patient has correct armband on for positive identification. Bed in low position. Call vg1 light in reach. Side rails up X 1. 19:46 Patient maintains SpO2 saturation greater than 95% on room air. vg1 19:50 Luis Manuel Bob MD is Attending Physician. [facility] 20:08 Jessica Romero, RN is Primary Nurse. vg1 20:46 Noemi Toro MD is Referral Physician. [facility] 21:07 No provider procedures requiring assistance completed. Patient did not have IV access ea during this emergency room visit. Administered Medications: No medications were administered Outcome: 20:45 Discharge ordered by . 7 21:07 Discharged to home ambulatory. ea 21:07 Condition: stable 21:07 Discharge instructions given to patient, Instructed on discharge instructions, follow up and referral plans. 21:08 Patient left the ED. ea Signatures: Riri Thomas RN RN ea Garcia, Victoria RN RN [facility] Luis Manuel Bob MD MD [facility] Corrections: (The following items were deleted from the chart) 19:45 19:42 Acuity: SARIAH 3 vg1 vg1
--- NOTE | 2020-08-25 20:46 | EDPHYS ---
Physician Documentation [facility] Name: David Goldman Age: 34 yrs Sex: Male : 1985 Arrival Date: 08/25/2020 Time: 19:42 Bed 15 Private MD: ED Physician Luis Manuel Bob HPI: 08/25 20:06 This 34 yrs old Male presents to ER via EMS with complaints of Choked/Choking.mh7 20:06 The patient or guardian reports the patient has a suspected foreign body, of the mh7 throat. The reported likely foreign body is piece of meat. Onset: The symptoms/episode began/occurred just prior to arrival, today. Current symptoms: foreign body sensation. Treatment Prior to Arrival: none. States that he choked on a piece of chicken this evening. he states that he was able to swallow water since then. Denies any chest pain, SOB, nausea, vomiting.. Historical: - Allergies: 19:44 NKA; vg1 - Home Meds: 19:44 None [Active]; vg1 - PMHx: 19:44 None; vg1 - Immunization history:: Adult Immunizations up to date. - Social history:: Smoking status: Patient denies any tobacco usage or history of. ROS: 20:06 Constitutional: Negative for fever, chills, and weight loss, Eyes: Negative for injury, mh7 pain, redness, and discharge, Neck: Negative for injury, pain, and swelling, Cardiovascular: Negative for chest pain, palpitations, and edema, Respiratory: Negative for shortness of breath, cough, wheezing, and pleuritic chest pain, Abdomen/GI: Negative for abdominal pain, nausea, vomiting, diarrhea, and constipation, Back: Negative for injury and pain, : Negative for injury, bleeding, discharge, and swelling, MS/Extremity: Negative for injury and deformity, Skin: Negative for injury, rash, and discoloration, Neuro: Negative for headache, weakness, numbness, tingling, and seizure, Psych: Negative for depression, anxiety, suicide ideation, homicidal ideation, and hallucinations, Allergy/Immunology: Negative for hives, rash, and allergies, Endocrine: Negative for neck swelling, polydipsia, polyuria, polyphagia, and marked weight changes, Hematologic/Lymphatic: Negative for swollen nodes, abnormal bleeding, and unusual bruising. Exam: 20:06 Constitutional: This is a well developed, well nourished patient who is awake, alert, mh7 and in no acute distress. Head/Face: Normocephalic, atraumatic. Eyes: Pupils equal round and reactive to light, extra-ocular motions intact. Lids and lashes normal. Conjunctiva and sclera are non-icteric and not injected. Cornea within normal limits. Periorbital areas with no swelling, redness, or edema. 20:06 Neck: Trachea midline, no thyromegaly or masses palpated, and no cervical lymphadenopathy. Supple, full range of motion without nuchal rigidity, or vertebral point tenderness. No Meningismus. Chest/axilla: Normal chest wall appearance and motion. Nontender with no deformity. No lesions are appreciated. Cardiovascular: Regular rate and rhythm with a normal S1 and S2. No gallops, murmurs, or rubs. Normal PMI, no JVD. No pulse deficits. Respiratory: Lungs have equal breath sounds bilaterally, clear to auscultation and percussion. No rales, rhonchi or wheezes noted. No increased work of breathing, no retractions or nasal flaring. Abdomen/GI: Soft, non-tender, with normal bowel sounds. No distension or tympany. No guarding or rebound. No evidence of tenderness throughout. Back: No spinal tenderness. No costovertebral tenderness. Full range of motion. Skin: Warm, dry with normal turgor. Normal color with no rashes, no lesions, and no evidence of cellulitis. MS/ Extremity: Pulses equal, no cyanosis. Neurovascular intact. Full, normal range of motion. Neuro: Awake and alert, GCS 15, oriented to person, place, time, and situation. Cranial nerves II-XII grossly intact. Motor strength 5/5 in all extremities. Sensory grossly intact. Cerebellar exam normal. Normal gait. Psych: Awake, alert, with orientation to person, place and time. Behavior, mood, and affect are within normal limits. 20:06 ENT: Mouth: is normal, Posterior pharynx: is normal, airway is patent, Dental exam: normal, Voice: is normal. Vital Signs: 19:42 BP 133 / 66; Pulse 70; Resp 16; Temp 98.2; Pulse Ox 99% ; Weight 106.59 kg; Height 6 vg1 ft. 3 in. (190.50 cm); Pain 4/10; 21:00 BP 130 / 60; Pulse 68; Resp 18; Temp 98; Pulse Ox 99% ; ea 19:42 Body Mass Index 29.37 (106.59 kg, 190.50 cm) vg1 Sumner Coma Score: 19:46 Eye Response: spontaneous(4). Verbal Response: oriented(5). Motor Response: obeys vg1 commands(6). Total: 15. Trauma Score (Adult): 19:46 Eye Response: spontaneous(1); Verbal Response: oriented(1); Motor Response: obeys vg1 commands(2); Systolic BP: > 89 mm Hg(4); Respiratory Rate: 10 to 29 per min(4); Thalia Score: 15; Trauma Score: 12 MDM: 20:43 Data reviewed: vital signs, nurses notes, EMS record. Data interpreted: Pulse oximetry: [facility] on room air is 99 %. Interpretation: normal. Counseling: I had a detailed discussion with the patient and/or guardian regarding: the historical points, exam findings, and any diagnostic results supporting the discharge/admit diagnosis, the need for outpatient follow up, to return to the emergency department if symptoms worsen or persist or if there are any questions or concerns that arise at home. Response to treatment: the patient's symptoms have resolved after treatment, the patient's blood pressure is in an acceptable range, mental status has returned to baseline, the patient no longer shows bradycardia, the patient is not short of breath, the patient is not tachycardic, the patient's pain is gone, the patient's temperature has normalized. 20:45 Patient medically screened. [facility] 08/25 20:01 Order name: PO challenge; Complete Time: 20:09 [facility] Administered Medications: No medications were administered Disposition: 08/25/20 20:45 Discharged to Home. Impression: Foreign Body Sensation, Throat. - Condition is Stable. - Discharge Instructions: Choking, Adult, Soft-Food Meal Plan, Swallowed Foreign Body, Adult, [id number]. - Medication Reconciliation Form, Thank You Letter, Antibiotic Education, Prescription Opioid Use form. - Follow up: Private Physician; When: 1 - 2 days; Reason: Worsening of condition, Recheck today's complaints, Continuance of care, Re-evaluation by your physician. Follow up: Noemi Toro MD; When: 1 - 2 days; Reason: Worsening of condition, Recheck today's complaints. - Problem is new. - Symptoms have improved. Signatures: Riri Thomas, RN Jessica Adame ea RN RN vg1 Luis Manuel Bob MD MD 7 Corrections: (The following items were deleted from the chart) 20:46 20:45 08/25/2020 20:45 Discharged to Home. Impression: Foreign Body Sensation, Throat. [facility] Condition is Stable. Forms are Medication Reconciliation Form, Thank You Letter, Antibiotic Education, Prescription Opioid Use. Follow up: Private Physician; When: 1 - 2 days; Reason: Worsening of condition, Recheck today's complaints, Continuance of care, Re-evaluation by your physician. Problem is new. Symptoms have improved. [facility] 21:08 20:46 08/25/2020 20:45 Discharged to Home. Impression: Foreign Body Sensation, Throat. ea Condition is Stable. Discharge Instructions: Choking, Adult, Soft-Food Meal Plan, Swallowed Foreign Body, Adult, [id number]. Forms are Medication Reconciliation Form, Thank You Letter, Antibiotic Education, Prescription Opioid Use. Follow up: Private Physician; When: 1 - 2 days; Reason: Worsening of condition, Recheck today's complaints, Continuance of care, Re-evaluation by your physician. Follow up: Noemi Toro; When: 1 - 2 days; Reason: Worsening of condition, Recheck today's complaints. Problem is new. Symptoms have improved. [facility]
[2020-08-25 21:17] VITALS: O2SAT 99
[2020-08-25 21:19] VITALS: BP 130/60; TEMP 98
== END 2020-08-25 21:08 | disposition home or self-care (01) ==
LOC: ER 19:40
DX: R09.89 Other specified symptoms and signs involving the circulatory and respiratory systems (principal)
CPT/HCPCS: 99284